=== PATIENT | male | born 1995 | race Caucasian/White ===

== ENCOUNTER 2019-10-29 20:54 | Emergency (ER) | payer MEDICAID, OTHER ==
[2019-10-29 21:30] LABS: APPEARANCE,URINE Clear (CLEAR); BILIRUBIN,URINE Negative (NEGATIVE); COLOR,URINE Yellow (YELLOW); GLUCOSE, URINE (UA) Negative (NEGATIVE); KETONES,URINE Negative (NEGATIVE); LEUKOCYTE ESTERASE ,URINE Negative (NEGATIVE); NITRATE,URINE Negative (NEGATIVE); OCCULT BLOOD,URINE Trace (NEGATIVE); PH,URINE 6.5 (5.0-8.0); PROTEIN,URINE Negative (NEGATIVE); UROBILINOGEN,URINE 0.2 mg/dL (0.2-1.0)
[2019-10-29 21:36] LABS: BASOPHILS % (AUTO) 0.8 % (0.0-5.0); EOSINOPHILS % (AUTO) 0.3 % (0.0-8.0); HEMATOCRIT 46.6 % (42-54); MEAN CORPUSCULAR HEMOGLOBIN 29.2 pg (27.0-33.0); MEAN CORPUSCULAR HGB CONC 34.5 g/dL (32.0-36.0); MEAN CORPUSCULAR VOLUME 84.6 fL (79-99); MONOCYTES % (AUTO) 8.8 % (3.0-13.0); NEUTROPHILS % (AUTO) 64.8 % (40.0-77.0); PLATELET COUNT (AUTO) 211 K/uL (130-400); RED BLOOD CELL COUNT(AUTO) 5.51 MIL/uL (4.50-6.20); RED CELL DISTRIBUTION WIDTH 11.7 % (11.0-15.5); WHITE BLOOD COUNT (AUTO) 8.8 K/uL (4.8-10.8)
[2019-10-29 21:39] LABS: AMPHET/METH SCREEN,URINE NEGATIVE (NEGATIVE); BARBITURATE SCREEN, URINE NEGATIVE (NEGATIVE); BENZODIAZEPINES SCREEN,URINE NEGATIVE (NEGATIVE); CANNABINOID SCREEN,URINE NEGATIVE (NEGATIVE); COCAINE SCREEN,URINE NEGATIVE (NEGATIVE); OPIATE SCREEN,URINE NEGATIVE (NEGATIVE); PHENCYCLIDINE SCREEN,URINE NEGATIVE (NEGATIVE)
[2019-10-29 21:45] LABS: CREATININE 1.2 mg/dL (0.5-1.5); POTASSIUM 3.8 mmol/L (3.5-5.1)
[2019-10-29 21:50] LABS: ALBUMIN 4.7 g/dL (3.5-5.0); BILIRUBIN,TOTAL 0.7 mg/dL (0.2-1.0); TOTAL PROTEIN, SERUM 7.9 g/dL (6.0-8.3)
[2019-10-29 21:53] LABS: BACTERIA,URINE None Seen /HPF (None Seen); RBC,URINE None Seen /HPF (0-1); SQUAMOUS EPITHELIAL CELL,UR None Seen /HPF (0-2); WBC,URINE 0-1 /HPF (0-1)
[2019-10-29] MEDS ORDERED: MECLIZINE HCL 25 MG TABLET ONE (22:13)
== END 2019-10-29 22:32 | disposition home or self-care (01) ==
LOC: EDH 20:54
DX: H81.10 Benign paroxysmal vertigo, unspecified ear (principal); R20.0 Anesthesia of skin
CPT/HCPCS: 36415; 80053; 80305; 81001; 85025; 93005

== ENCOUNTER 2022-05-10 02:24 | Emergency (ER) | payer OTHER ==
[~2022-05-10] VITALS: Ht 170.2 cm; Wt 82.1 kg
[2022-05-10] MEDS ORDERED: DOXYCYCLINE HYCLATE 100 MG TABLET PO SCH (03:30)
[2022-05-10] MEDS ORDERED: CEFTRIAXONE 500MG VIAL IM SCH (03:30)
[2022-05-10] MEDS ORDERED: DOXY-336 PO (04:06)
[2022-05-10 04:07] VITALS: BP 124/65
[2022-05-10 04:29] LABS: RAPID PLASMA REAGIN NONREACTIVE (NONREACTIVE)
== END 2022-05-10 04:18 | disposition home or self-care (01) ==
LOC: EDH 02:24
DX: N34.2 Other urethritis (principal)
CPT/HCPCS: 99283; 86592; 87797; 86701; 87390; 87486; 36415; 96372; J0696